=== PATIENT | female | born 1985 | race Caucasian/White ===

== ENCOUNTER 2025-08-12 16:34 | Emergency (ER) | payer BC ==
[~2025-08-12] VITALS: Ht 185.4 cm; Wt 163.3 kg
[2025-08-12] MEDS ORDERED: KETOROLAC TROMETHAMINE 15 MG/ML VIAL ONE (17:51)
[2025-08-12] MEDS ORDERED: LIDOCAINE 5% (PATCH) 1 EA PATCH TP ONE (17:51)
[2025-08-12] MEDS ORDERED: METHOCARBAMOL (500MG) 500 MG TABLET ONE (17:52)
[2025-08-12] MEDS: KETOROLAC TROMETHAMINE 15 MG/ML VIAL IM ONE (18:01)
[2025-08-12] MEDS: LIDOCAINE 5% (PATCH) 1 EA PATCH TP SCH (18:01)
[2025-08-12] MEDS: METHOCARBAMOL (750MG) 750 MG TABLET PO SCH (18:02)
[2025-08-12 18:27] LABS: APPEARANCE,URINE CLEAR (CLEAR); BLOOD, URINE Negative Ery/uL (NEGATIVE); LEUKOCYTE ESTERASE ,URINE Small (NEGATIVE); NITRITE, URINE NEGATIVE (NEGATIVE); UGLUCOSE Negative (NEGATIVE)
[2025-08-12 18:28] LABS: ADD URINE CULTURE YES; SQUAMOUS EPITHELIAL CELL,UR Few /HPF (None Seen)
[2025-08-12] MEDS ORDERED: ACET325C7 PO (18:52)
[2025-08-12] MEDS ORDERED: IBUP-1953 PO (18:52)
[2025-08-12] MEDS ORDERED: LIDO30AD10 TP (18:52)
[2025-08-12] MEDS ORDERED: METH-649 PO (18:52)
[2025-08-12 18:58] VITALS: BP 128/90; TEMP 98.1; O2SAT 94
== END 2025-08-12 19:01 | disposition home or self-care (01) ==
LOC: ER 16:44
DX: M54.50 Low back pain, unspecified (principal); I10 Essential (primary) hypertension; F25.9 Schizoaffective disorder, unspecified; F17.200 Nicotine dependence, unspecified, uncomplicated; Z60.2 Problems related to living alone
CPT/HCPCS: 99283; 96372; 81001; J1885; 87086-TC